=== PATIENT | female | born 1975 | race Caucasian/White ===

== ENCOUNTER 2022-09-26 11:50 | Emergency (ER) | payer BC ==
[~2022-09-26] VITALS: Ht 160 cm; Wt 81.6 kg
--- NOTE | 2022-09-26 12:37 | NUR ---
Patient triaged and placed in waiting room. VSS and patient appears in no acute distress at this time. Accompanied by MEAGHAN, awaiting available bed, and MD notified of need for MSE.
--- NOTE | 2022-09-26 12:37 | NUR ---
DR. GIANG IN WAITING ROOM TO ASSESS PT.
[2022-09-26 12:38] VITALS: BP_SYST 147
--- NOTE | 2022-09-26 12:38 | NUR ---
PT TAKEN FOR CXR. COVID SAMPLE OBTAINED.
[2022-09-26] MEDS ORDERED: OSEL75CA PO (15:44)
[2022-09-26] MEDS ORDERED: NIRM1TAB5 PO (15:44)
--- NOTE | 2022-09-26 15:58 | NUR ---
Patient given written and verbal discharge instructions and verbalizes understanding. ER MD DR GIANG discussed with patient the results and treatment provided. Patient in stable condition. ID arm band removed. Rx of PAXLOVID AND TAMIFLU given. Patient educated on pain management and to follow up with PMD. Pain Scale 0/10. Opportunity for questions provided and answered. Medication side effect fact sheet provided.
[2022-09-26 15:59] VITALS: BP_SYST 116
== END 2022-09-26 15:58 | disposition home or self-care (01) ==
LOC: SED 11:50
DX: U07.1 COVID-19 (principal); J10.1 Influenza due to other identified influenza virus with other respiratory manifestations; E04.1 Nontoxic single thyroid nodule; R05.9 Cough, unspecified; Z79.899 Other long term (current) drug therapy
CPT/HCPCS: 36415; 71045; 71250-TC; 76376; 99284

== ENCOUNTER 2023-01-05 12:35 | Emergency (ER) | payer BC ==
[~2023-01-05] VITALS: Ht 157.5 cm; Wt 83.9 kg
[~2023-01-05 12:35] MED LIST: NIRM1TAB5 PO; OSEL75CA PO
[2023-01-05 12:45] VITALS: BP_SYST 112; PULSE 69; RESP 16; TEMP 97.8; O2SAT 97
[2023-01-05 13:24] LABS: BASOPHILS # (AUTO) 0.1 K/uL (0.0-0.2); BASOPHILS % (AUTO) 0.6 % (0.0-2.0); EOSINOPHILS # (AUTO) 0.1 K/uL (0.0-0.4); HEMATOCRIT 29.7 % (36-48); HEMOGLOBIN 9.4 g/dL (12.0-16.0); LYMPHOCYTES # (AUTO) 4.8 K/uL (1.0-5.5); LYMPHOCYTES % (AUTO) 45.5 % (20.5-51.5); MEAN CORPUSCULAR HEMOGLOBIN 23 pg (27-31); MEAN CORPUSCULAR HGB CONC 32 % (32-36); MEAN CORPUSCULAR VOLUME 72 fL (79.0-98.0); MONOCYTES % (AUTO) 9.1 % (1.7-9.3); NEUTROPHILS # (AUTO) 4.6 K/uL (1.8-7.7); NEUTROPHILS % (AUTO) 43.8 % (40.0-70.0); PLATELET COUNT (AUTO) 193 K/uL (130-430); RED BLOOD CELL COUNT(AUTO) 4.11 MIL/uL (4.2-6.2); RED CELL DISTRIBUTION WIDTH 20.1 % (9.0-15.0); WHITE BLOOD COUNT (AUTO) 10.5 K/uL (4.8-10.8)
[2023-01-05 13:37] LABS: CALCIUM 9.6 mg/dL (8.4-11.0); CREATININE 0.72 mg/dL (0.55-1.30); POTASSIUM 4.1 mmol/L (3.5-5.1)
[2023-01-05 13:47] LABS: TOTAL BILIRUBIN 0.6 mg/dL (0.0-1.0); TOTAL PROTEIN, SERUM 8.4 g/dL (6.4-8.3)
[2023-01-05 14:01] LABS: ANISOCYTOSIS 1+; HYPOCHROMASIA SLIGHT
[2023-01-05 15:00] VITALS: BP_SYST 130; PULSE 69; RESP 16; TEMP 97.7; O2SAT 99
== END 2023-01-05 15:01 | disposition home or self-care (01) ==
LOC: SED 12:35
DX: N93.8 Other specified abnormal uterine and vaginal bleeding (principal); R10.30 Lower abdominal pain, unspecified; Z79.899 Other long term (current) drug therapy
CPT/HCPCS: 36415; 76857; 80053; 81025; 84702; 85025; 85610-TC; 85730-TC; 86900; 86901; 99284